=== PATIENT | female | born 1960 | race Caucasian/White ===

== ENCOUNTER → 2024-09-17 12:10 | Outpatient (REF) | payer MEDICARE, SELFPAY | LOC: WDC 12:10 | PROVIDERS: ATTENDING PHYSICIAN Physician Assistant Medical | DX: R63.4 Abnormal weight loss (principal); Z68.1 Body mass index [BMI] 19.9 or less, adult; Z12.31 Encounter for screening mammogram for malignant neoplasm of breast | CPT/HCPCS: 71046; 77063; 77067 ==

== ENCOUNTER 2024-10-11 03:11 | Emergency (ER) | payer MEDICARE, SELFPAY ==
[2024-10-11 03:15] VITALS: BP 165/92
--- NOTE | 2024-10-11 04:40 | ED.MUSCINJ ---
HPI-Injury
<ANDREAS Kilgore - Last Filed: 10/11/24 05:43>
General
Chief Complaint: Musculo-Skeletal Complaint
Source: patient
Exam Limitations: clinical condition
Time Seen by Provider: 10/11/24 04:39
Nursing documentation reviewed up to this point in time: agreed with
History of Present Illness-Injury
Initial Injury comments:
Pt is a 63 yo F with PMH of asthma and L shoulder arthroscopic surgery who presents to the ED for R shoulder pain x 2 days. She states it is a 9/10 and very bothersome. She has tried motrin with minimal relief (last dose at 02:00am). She notes that
she does have some radiation of pain/tingling down into her forearm and fingers. She states she has not lost strength in the shoulder/arm but is limited in ROM. She denies trauma to the area and states she does lift weights when working out, but has
been doing this for a long time. Pt denies fever, erythema or edema of the joint, numbness.
Past History
<ANDREAS Kilgore - Last Filed: 10/11/24 05:43>
Past History
ED Past Medical History: Asthma
ED Past Surgical History: Other (shoulder arthroscopy w/ Dr Ruiz )
Social History
Tobacco: Non-smoker
Alcohol: Occasional
Personal:
Living: with family
Employment: Employed
Family History
Family History: Negative Hypertension, Early CAD, Sudden or Other (No family history of DVT or PE)
Review of Systems
<ANDREAS Kilgore - Last Filed: 10/11/24 05:43>
Review of Systems
Allergies reviewed?: Yes
Constitutional: Denies fever
Respiratory: Reports no symptoms
Cardiac: Denies chest pain or palpitations
ABD/GI: Denies abdominal pain or nausea
: Reports no symptoms
Musculoskeletal: Reports joint pain and muscle pain
Neurological: Denies weakness or numbness
Musculoskeletal Injury Exam
<ANDREAS Kilgore - Last Filed: 10/11/24 05:43>
Musculoskeletal Injury Exam
Right Shoulder:
Pain with Movement?: Severe
Tender to palpation?: Severe
Soft tissue swelling?: None
External deformity and angulation?: None
Joint effusion?: None
Contusion?: None
Hematoma-local bleeding into tissue?: None
Crepitus with movement?: No
Malalignment/deformity?: No
Range of motion: Limited
Distal skin color and temperature: normal-warm & good color
Peripheral Pulses: radial (right): 2+
Phy Exam
<ANDREAS Kilgore - Last Filed: 10/11/24 05:43>
General Physical Exam
General Presentation: well appearing and no apparent distress
General age: appears stated age
General Skin: warm and dry
General Habitus: normal
General Mental: alert
General Hydration: appears well hydrated
Cardiovascular Exam
Cardiovascular Exam: regular rate/rhythm and no murmur
Pulmonary Exam
Pulmonary Exam: lungs clear and no respiratory distress
Neurological Exam
Neurological Exam: alert, oriented x3, normal reflexs and no sensory deficits
Injury Course
<ANDREAS Kilgore - Last Filed: 10/11/24 05:43>
Orders/Labs/Results
Orders:
Orders
10/11/24 03:21
Shoulder, Right, Trauma [CR Shoulder, Trauma - Right] Urgent
Comment:
Reason For Exam: significant pain, no direct impact
10/11/24 05:02
Ketorolac [Toradol] 30 mg IM NOW STA
Lidocaine [Lidocaine 4% Patch] 1 patch TOPICAL NOW STA
Apply Lidocaine patch(s) to:: right anterior shoulder
<Stefany Langford DO - Last Filed: 10/11/24 06:31>
Orders/Labs/Results
Orders:
Orders
10/11/24 03:21
Shoulder, Right, Trauma [CR Shoulder, Trauma - Right] Urgent
Comment:
Reason For Exam: significant pain, no direct impact
10/11/24 05:02
Ketorolac [Toradol] 30 mg IM NOW STA
Lidocaine [Lidocaine 4% Patch] 1 patch TOPICAL NOW STA
Apply Lidocaine patch(s) to:: right anterior shoulder
<ANDREAS Kilgore - Last Filed: 10/11/24 05:43>
MDM/Problems Addressed
Differential Diagnosis Includes:
tendonitis, adhesive capsulitis, AC joint separation
<ANDREAS Kilgore - Last Filed: 10/11/24 05:43>
*Critical Care Note
Total Time (30-74mins, 75-104mins- exclusive of procedures): Not Applicable
<DO Kelly Davila Last Filed: 10/11/24 06:31>
*Radiology
Radiology exam reviewed: preliminary read by ED provider (Right shoulder x-ray is unremarkable.)
*Pulse Oximetry
Patient hypoxic: no
ED Attending Note
<ANDREAS Kilgore - Last Filed: 10/11/24 05:43>
-
Portions of this chart may have been created with voice recognition software.� Occasional wrong word or��sound alike� substitutions may have occurred due to the inherent limitations of voice recognition software.
<Stefany Langford DO - Last Filed: 10/11/24 06:31>
ED Attending Note
Patient seen and examined by attending physician: Yes
I performed the substantive portion of visit, reviewed & personally made and approve the management plan that is documented in note by myself or REYNALDO.: Yes
ED Attending Note:
This is a 63-year-old woman with no significant past medical history who has been working out with her over the past month at a local gym. She complains of 2-day history of right anterior shoulder pain without insightful injury. Shoulder
pain is much worse at nighttime, much worse this morning with markedly limited range of motion related to pain. She denies weakness or numbness. No fever nor chills. No history of similar episodes of right shoulder pain but she does have remote
history of left shoulder arthroscopy for calcific tendinitis.
She took ibuprofen 400 mg earlier this morning without significant improvement.
No prior history of inflammatory arthropathy.
She does have history of chronic cough, chronically maintained on gabapentin which has been helpful.
GENERAL: 63-year-old woman appears somewhat younger than stated age, thin build, she is bright and alert, easily communicative and appears in no acute distress.
EYE: anicteric
NECK: Supple, nontender, no meningismus, no significant adenopathy.
ENT: oral mucosa is moist. No rhinorrhea.
CARDIAC: Regular rate and rhythm. no murmur.
LUNGS: Clear breath sounds bilaterally, no acute respiratory distress
NEUROLOGICAL: Alert and oriented x3, no focal neuro deficits. Gait is benitez and steady.
SKIN: Warm and dry, normal color, skin intact. No rash.
MUSCULOSKELETAL: No C/C/E. peripheral pulses are full and equal b/l. Moderate tenderness right anterior shoulder with mild focal soft tissue swelling anterior shoulder. Moderately limited range of motion of right shoulder related to pain but there
is no crepitus, no erythema, no palpable heat. No joint effusion. No tenderness to the clavicle nor upper arm nor elbow.
PSYCH: Normal and appropriate interaction.
History and exam consistent with acute tendinitis Right shoulder. Nothing to suggest acute inflammatory arthropathy nor infectious process.
X-ray is unremarkable.
Will trial topical lidocaine patch and an IM dose of Toradol.
06:20 am
Patient feeling markedly improved, eager to be discharged to home.
Will prescribe a short course of diclofenac to take twice daily and recommend she continue lidocaine patches which are available [id number].
Recommend rest, local heat, follow-up with PCP and patient will be referred to orthopedics as well.
Discharge Plan
Departure
Patient Disposition: Home (Routine Discharge)
Date of Disposition: 10/11/24
Time of Disposition: 06:27
Patient with high blood pressure during this ER visit?: No
Condition: Good
Discharge Problem:
Right shoulder tendinitis
Instructions: Shoulder Bursitis Exercises, Rotator Cuff Tendinitis Stretching Exercises
Prescriptions:
New
diclofenac sodium 75 mg tablet,delayed release (DR/EC)
75 mg PO BID PRN (Reason: pain) Qty: 30 0RF
No Action
omeprazole magnesium [Prilosec OTC] 20 MG tablet,delayed release (DR/EC)
20 mg PO DAILY
naproxen 500 MG tablet
500 mg PO BID Qty: 30 0RF
lidocaine 1 PATCH adhesive patch,medicated
1 patch topical DAILY Qty: 12 0RF
Rx Instructions:
ON FOR 12 HOURS, OFF FOR 12 HOURS
Referrals:
Kristyn Hurley PA-C [Family Provider] - Call in 1-3 days for appt
Dylan Askew MD [Active] - Call in 1-3 days for appt
Interventions
Interventions:
*Risk Screen - Suicide Last Done: 10/11/24 03:15
*General Assessment Last Done: 10/11/24 03:15
*Neglect/Abuse Screening Last Done: 10/11/24 03:15
ED- Fall Risk Assessment Last Done: 10/11/24 03:15
*ED COVID-19 Vaccine History Last Done: 10/11/24 03:15
ED-Musculoskeletal Assessment Last Done: 10/11/24 04:20
Discharge Date and Time
Print Language: ARMENIAN
[2024-10-11] MEDS: LIDOCAINE 4% PATCH 1 PATCH TOPICAL (05:30)
[2024-10-11] MEDS: TORADOL 30 MG IM (05:31)
[2024-10-11 06:42] VITALS: BP 155/80
== END 2024-10-11 06:44 | disposition home or self-care (01) ==
LOC: EMR 03:11
PROVIDERS: EMERGENCY PHYSICIAN Emergency Medicine; FAMILY PHYSICIAN Physician Assistant Medical
DX: M75.91 Shoulder lesion, unspecified, right shoulder (principal); J45.909 Unspecified asthma, uncomplicated
CPT/HCPCS: 96372; 99284; 73030

== ENCOUNTER → 2025-09-20 07:51 | Outpatient (REF) | payer OTHER, SELFPAY | LOC: WDC 07:51 | PROVIDERS: ATTENDING PHYSICIAN Physician Assistant Medical | DX: Z12.31 Encounter for screening mammogram for malignant neoplasm of breast (principal) | CPT/HCPCS: 77063; 77067 ==

== ENCOUNTER → 2025-10-29 11:29 | Outpatient (REF) | payer OTHER, SELFPAY | LOC: HWRAD 11:29 | PROVIDERS: ATTENDING PHYSICIAN Otolaryngology; FAMILY PHYSICIAN Physician Assistant Medical | DX: R09.82 Postnasal drip (principal) | CPT/HCPCS: 70486 ==